=== PATIENT | male | born 1985 | race African-American/Black ===

== ENCOUNTER 2019-06-30 14:55 | Emergency (ER) | payer SELFPAY | END 2019-06-30 15:32 | disposition home or self-care (01) | LOC: NAV ERS 14:55 | DX: M54.5 Low back pain (principal); E66.9 Obesity, unspecified ==

== ENCOUNTER 2019-10-28 20:20 | Emergency (ER) | payer SELFPAY | END 2019-10-28 21:50 | disposition home or self-care (01) | LOC: NAV ERS 20:20 | DX: J06.9 Acute upper respiratory infection, unspecified (principal); E66.9 Obesity, unspecified | CPT/HCPCS: 87804; 99283 ==

== ENCOUNTER 2019-12-03 14:30 | Emergency (ER) | payer SELFPAY ==
[2019-12-03] MEDS ORDERED: Ondansetron ODT 4 MG TAB ONE (15:10)
== END 2019-12-03 15:24 | disposition home or self-care (01) ==
LOC: NAV ERS 14:30
DX: A08.4 Viral intestinal infection, unspecified (principal)
CPT/HCPCS: 99283; Q0162

== ENCOUNTER 2020-12-09 05:10 | Emergency (ER) | payer SELFPAY ==
[2020-12-09 21:01] LABS: SARS-CoV-2 PCR by NAA Not Detected (NotDetected)
== END 2020-12-09 05:41 | disposition home or self-care (01) ==
LOC: NAV ERS 05:10
DX: J06.9 Acute upper respiratory infection, unspecified (principal); Z20.822 Contact with and (suspected) exposure to COVID-19
CPT/HCPCS: 87635; 99283; U0003; U0005

== ENCOUNTER 2021-12-24 18:15 | Emergency (ER) | payer SELFPAY ==
[2021-12-24 18:47] LABS: #Basophils 0.1 thou/uL (0.0-0.2); #Eosinphils 0.4 thou/uL (0.0-0.7); #Lymphocytes 2.6 thou/uL (1.20-3.40); #Monocytes 0.7 thou/uL (0.11-0.59); #Neutrophils 6.9 thou/uL (1.40-6.50); %Basophils 0.9 % (0.0-1.0); %Eosinophils 3.5 % (0.0-10.0); %Lymphocytes 24.5 % (21.0-51.0); %Monocytes 6.2 % (0.0-10.0); Hemoglobin 13.4 g/dL (14.0-18.0); Mean Corpuscular HGB CONC 31.3 g/dL (32.0-36.0); Mean Corpuscular Hemoglobin 26.1 pg (27.0-31.0); Mean Corpuscular Volume 83.6 fL (78.0-98.0); Mean Platelet Volume 9.1 fL (7.4-10.4); Platelet Count 306 thou/uL (130-400); RBC Distribution Width 13.7 % (11.5-14.5); Red Blood Cell (RBC) Count 5.12 mill/uL (4.70-6.10); White Blood Cell (WBC) Count 10.7 thou/uL (4.8-10.8)
[2021-12-24] MEDS ORDERED: Acetaminophen 500 MG TAB ONE (18:50)
[2021-12-24] MEDS ORDERED: Sodium Chloride 0.9% 1,000 ML ONE (18:50)
[2021-12-24 18:59] LABS: ALT (SGPT) 42 U/L (8-55); AST (SGOT) 31 U/L (5-34); Albumin 4.1 g/dL (3.5-5.0); Alkaline Phosphatase 57 U/L (40-110); Anion Gap 17 mmol/L (10-20); BUN (Urea Nitrogen) 13 mg/dL (8.9-20.6); Bilirubin, Total 0.4 mg/dL (0.2-1.2); CK (CPK) 482 U/L (30-200); Calc. Creatinine Clearance 0 mL/min (70-130); Calcium 9.3 mg/dL (7.8-10.44); Carbon Dioxide 22 mmol/L (22-29); Chloride 105 mmol/L (98-107); Globulin 3.3 g/dL (2.4-3.5); Glucose 99 mg/dL (70-105); Potassium 4.4 mmol/L (3.5-5.1); Protein, Total 7.4 g/dL (6.0-8.3); Sodium 140 mmol/L (136-145)
[2021-12-25 18:34] LABS: SARS-CoV-2 PCR by NAA Not Detected (NotDetected)
== END 2021-12-24 21:26 | disposition home or self-care (01) ==
LOC: NAV ERS 18:15
DX: R05.9 Cough, unspecified (principal); R61 Generalized hyperhidrosis; R42 Dizziness and giddiness; R06.02 Shortness of breath; R09.81 Nasal congestion; R51.9 Headache, unspecified; F17.220 Nicotine dependence, chewing tobacco, uncomplicated; E66.9 Obesity, unspecified; Z20.822 Contact with and (suspected) exposure to COVID-19; Z68.45 Body mass index [BMI] 70 or greater, adult
CPT/HCPCS: 71046; 80053; 82550; 84484; 85025; 87804; 93005; J7050; U0003; U0005

== ENCOUNTER 2023-09-04 07:34 | Emergency (ER) | payer SELFPAY | END 2023-09-04 08:40 | disposition home or self-care (01) | LOC: NAV ERS 07:34 | DX: A08.4 Viral intestinal infection, unspecified (principal); F17.220 Nicotine dependence, chewing tobacco, uncomplicated | CPT/HCPCS: 87804; 99284 ==

== ENCOUNTER 2023-12-10 00:31 | Emergency (ER) | payer SELFPAY | END 2023-12-10 02:00 | disposition home or self-care (01) | LOC: NAV ERS 00:31 | DX: R05.9 Cough, unspecified (principal); F17.220 Nicotine dependence, chewing tobacco, uncomplicated | CPT/HCPCS: 87081; 87430; 99283 ==

== ENCOUNTER 2024-08-09 12:30 | Emergency (ER) | payer BC ==
[2024-08-09] MEDS ORDERED: predniSONE 20 MG TAB ONE (13:50)
== END 2024-08-09 14:01 | disposition home or self-care (01) ==
LOC: NAV ERS 12:30
DX: T78.1XXA Other adverse food reactions, not elsewhere classified, initial encounter (principal); F17.220 Nicotine dependence, chewing tobacco, uncomplicated; X58.XXXA Exposure to other specified factors, initial encounter
CPT/HCPCS: 99282; J7512